=== PATIENT | male | born 1960 | race Asian ===

== ENCOUNTER → 2017-04-11 | Outpatient (CLI) | payer OTHER ==
[~2017-04-11] MED LIST: AMIT50TA PO; GABA300T3 PO; HYDR-3241 PO; LISI-170 PO; METF500T27 PO; NEBI5TAB2 PO; PRAV10TA2 PO; TRAM50TA2 PO; [UNRECOGNIZED DRUG - OTHER]; [UNRECOGNIZED DRUG - OTHER] PO; flomax
[2017-04-11 12:48] LABS: HEMATOCRIT 47.7 % (39.2-51.8); HEMOGLOBIN 16.1 g/dL (13.7-18.0); WHITE BLOOD COUNT 11.8 x10^3/uL (3.4-10)
[2017-04-11 12:57] LABS: BLOOD UREA NITROGEN 19 mg/dL (7-18)
[2017-04-11 13:00] LABS: ASPARTATE AMINO TRANSFERASE 17 U/L (15-37)
== END | disposition home or self-care (01) ==
LOC: LAB 10:00
PROVIDERS: ATTEND Family Medicine
DX: E11.42 Type 2 diabetes mellitus with diabetic polyneuropathy (principal)
CPT/HCPCS: 36415; 80053; 80061; 83036; 85025

== ENCOUNTER → 2017-10-01 | Outpatient (CLI) | payer OTHER | LOC: CFH 15:20 | PROVIDERS: ATTEND Nurse Practitioner | DX: M54.12 Radiculopathy, cervical region (principal); M54.6 Pain in thoracic spine; M54.5 Low back pain; R20.2 Paresthesia of skin; M48.00 Spinal stenosis, site unspecified | CPT/HCPCS: 72052; 72072; 72114; 72141 ==